=== PATIENT | male | born 1995 | race Two or more races ===

== ENCOUNTER 2017-07-12 02:09 | Inpatient (IN) | payer OTHER ==
[2017-07-12 03:58] LABS: Hematocrit 45 % (42-52); Hemoglobin 15.4 g/dl (14.0-18.0); Mean Corpuscular HGB Conc 34 g/dl (31-36); Mean Corpuscular Hemoglobin 30 pg (27-31); Mean Corpuscular Volume 89 fL (80-94); Mean Platelet Volume 8 um3 (7.4-10.4); Red Blood Count 5.11 10^6/ul (4.0-5.4); Red Cell Distribution Width 13 % (10.5-15); White Blood Count 5.1 10^3/ul (3.5-10.8)
[2017-07-12 04:02] LABS: Urine Bilirubin Negative (Negative); Urine Glucose Negative (Negative); Urine Nitrite Negative (Negative)
[2017-07-12 04:08] LABS: ALT 22 U/L (7-52); AST 16 U/L (13-39); Albumin 4.4 g/dL (3.2-5.2); Alkaline Phosphatase 56 U/L (34-104); Anion Gap 4 mmol/L (2-11); BUN/Creatinine Ratio 17.1 (8-20); Blood Urea Nitrogen 13 mg/dL (6-24); CO2 Carbon Dioxide 31 mmol/L (22-32); Calcium 9.3 mg/dL (8.6-10.3); Chloride 104 mmol/L (101-111); Creatine Kinase 152 U/L (10-223); EGFR African American 166.5 (>60); EGFR Non-African American 129.5 (>60); Glucose 86 mg/dL (70-100); Potassium 3.8 mmol/L (3.5-5.0); Sodium 139 mmol/L (133-145); Total Protein 7.4 g/dL (6.4-8.9)
[2017-07-12 04:09] LABS: Acetaminophen < 15 mcg/mL; Alcohol < 10 mg/dL (<10); Salicylate < 2.50 mg/dL (<30)
[2017-07-12 04:13] LABS: Benzodiazepine Urine Screen None Detected (None Detect)
--- NOTE | 2017-07-12 09:00 | ED ---
Luis E Norwood Thomas, scribed for Sonali Durbin MD on 07/12/17 at 0540 . Psychiatric Complaint - HPI Summary HPI Summary: The pt is a 22 y/o BIB police after he was seen at one of the [facility] [place] where it seemed like he might jump off. He reports feelings of sadness and loneliness recently. He has a Hx of these thoughts. He has never been hospitalized previously. He denies any alcohol or illicit drug use. He denies any CP, FRAZIER, abd pain, dizziness, pain, or any other complaints. 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 He is otherwise healthy. No PSHx. FHx is negative for depression and suicide. His family does not know he is here. He does not want his family to know that he is here. - History Of Current Complaint Chief Complaint: EDMentalHealth Time Seen by Provider: 07/12/17 02:46 Hx Obtained From: Patient, Other: - Police Onset/Duration: Gradual Onset, Lasting Weeks, Still Present Timing: Constant Severity Initially: Moderate Severity Currently: Moderate Character: Depressed Aggravating Factor(s): Nothing Alleviating Factor(s): Nothing Associated Signs And Symptoms: Positive: Negative - Negative for CP, FRAZIER, abd pain, dizziness, pain, or any other complaints Has Suicidal: Reports: Thoughts, With A Plan, Demonstrates Gesture - Risk Factor(s) Completed Suicide Risk Factors: Male PMH/Surg Hx/FS Hx/Imm Hx Previously Healthy: Yes Endocrine/Hematology History: Denies: Hx Diabetes Cardiovascular History: Denies: Hx Hypertension - Surgical History Surgery Procedure, Year, and Place: None Infectious Disease History: No Infectious Disease History: Denies: Traveled Outside the [place] in Last 30 Days - Family History Known Family History: Negative: Other - Negative for depression and suicide - Social History Occupation: Student Lives: Dormitory/Roommates Alcohol Use: Occasionally Substance Use Type: Reports: None Smoking Status (MU): Never Smoked Tobacco Review of Systems Constitutional: Negative Negative: Chest Pain Respiratory: Negative Gastrointestinal: Negative Negative: Other - NEGATIVE: any pain Neurological: Other - NEGATIVE: dizziness Negative: Headache Psychological: Other - Suicidal gesture (found at one of [facility] [place]), sadness, loneliness All Other Systems Reviewed And Are Negative: Yes Physical Exam Triage Information Reviewed: Yes Vital Signs On Initial Exam: Initial Vitals Temp Pulse Resp BP Pulse Ox 97.7 F 74 18 147/65 100 10/01/17 02:14 07/12/17 02:14 07/12/17 02:14 07/12/17 02:14 07/12/17 02:14 Vital Signs Reviewed: Yes Appearance: Positive: Well-Appearing, No Pain Distress, Well-Nourished Skin: Positive: Warm, Skin Color Reflects Adequate Perfusion Head/Face: Positive: Normal Head/Face Inspection Eyes: Positive: Conjunctiva Clear ENT: Positive: Normal ENT inspection Neck: Positive: Supple Respiratory/Lung Sounds: Positive: Clear to Auscultation, Breath Sounds Present , Other - No respiratory distress Cardiovascular: Positive: RRR, Pulses are Symmetrical in both Upper and Lower Extremities, Other - Brisk cap refill. Negative: Murmur Abdomen Description: Positive: Nontender, Soft Bowel Sounds: Positive: Present Musculoskeletal: Positive: Strength/ROM Intact Neurological: Positive: Sensory/Motor Intact, Alert, Oriented to Person Place, Time, Facial Symmetry, Speech Normal Psychiatric: Positive: Affect/Mood Appropriate - [place] Coma Scale Coma Scale Total: 15 Diagnostics - Vital Signs Vital Signs Temp Pulse Resp BP Pulse Ox 07/12/17 03:58 98.7 F 65 20 146/85 99 07/12/17 02:14 97.7 F 74 18 147/65 100 - Laboratory Lab Results: Lab Results 07/12/17 07/12/17 07/12/17 Range/Units 02:20 02:20 02:25 WBC 5.1 (3.5-10.8) 10^3/ul RBC 5.11 (4.0-5.4) 10^6/ul Hgb 15.4 (14.0-18.0) g/dl Hct 45 (42-52) % MCV 89 (80-94) fL MCH 30 (27-31) pg MCHC 34 (31-36) g/dl RDW 13 (10.5-15) % Plt Count 206 (150-450) 10^3/ul MPV 8 (7.4-10.4) um3 Neut % (Auto) 43.0 (38-83) % Lymph % (Auto) 41.8 (25-47) % [place] % (Auto) 10.8 H (1-9) % Eos % (Auto) 3.6 (0-6) % Baso % (Auto) 0.8 (0-2) % Absolute Neuts (auto) 2.2 (1.5-7.7) 10^3/ul Absolute Lymphs (auto) 2.1 (1.0-4.8) 10^3/ul Absolute Monos (auto) 0.5 (0-0.8) 10^3/ul Absolute Eos (auto) 0.2 (0-0.6) 10^3/ul Absolute Basos (auto) 0 (0-0.2) 10^3/ul Absolute Nucleated RBC 0 10^3/ul Nucleated RBC % 0 Sodium 139 (133-145) mmol/L Potassium 3.8 (3.5-5.0) mmol/L Chloride 104 (101-111) mmol/L Carbon Dioxide 31 (22-32) mmol/L Anion Gap 4 (2-11) mmol/L BUN 13 (6-24) mg/dL Creatinine 0.76 (0.67-1.17) mg/dL Est GFR ( Amer) 166.5 (>60) Est GFR (Non-Af Amer) 129.5 (>60) BUN/Creatinine Ratio 17.1 (8-20) Glucose 86 (70-100) mg/dL Calcium 9.3 (8.6-10.3) mg/dL Total Bilirubin 0.40 (0.2-1.0) mg/dL AST 16 (13-39) U/L ALT 22 (7-52) U/L Alkaline Phosphatase 56 (34-104) U/L Total Creatine Kinase 152 (10-223) U/L Total Protein 7.4 (6.4-8.9) g/dL Albumin 4.4 (3.2-5.2) g/dL Globulin 3.0 (2-4) g/dL Albumin/Globulin Ratio 1.5 (1-3) TSH 2.80 (0.34-5.60) mcIU/mL Urine Color Urine Appearance Urine pH (5-9) Ur Specific [place] (1.010-1.030) Urine Protein (Negative) Urine Ketones (Negative) Urine Blood (Negative) Urine Nitrate (Negative) Urine Bilirubin (Negative) Urine Urobilinogen (Negative) Ur Leukocyte Esterase (Negative) Urine Glucose (Negative) Salicylates < 2.50 (<30) mg/dL Urine Opiates Screen None detected (None Detect) Acetaminophen < 15 mcg/mL Ur Barbiturates Screen None detected (None Detect) Ur Phencyclidine Scrn None detected (None Detect) Ur Amphetamines Screen None detected (None Detect) U Benzodiazepines Scrn None detected (None Detect) Urine Cocaine Screen None detected (None Detect) U Cannabinoids Screen None detected (None Detect) Serum Alcohol < 10 (<10) mg/dL 07/12/17 Range/Units 02:25 WBC (3.5-10.8) 10^3/ul RBC (4.0-5.4) 10^6/ul Hgb (14.0-18.0) g/dl Hct (42-52) % MCV (80-94) fL MCH (27-31) pg MCHC (31-36) g/dl RDW (10.5-15) % Plt Count (150-450) 10^3/ul MPV (7.4-10.4) um3 Neut % (Auto) (38-83) % Lymph % (Auto) (25-47) % [place] % (Auto) (1-9) % Eos % (Auto) (0-6) % Baso % (Auto) (0-2) % Absolute Neuts (auto) (1.5-7.7) 10^3/ul Absolute Lymphs (auto) (1.0-4.8) 10^3/ul Absolute Monos (auto) (0-0.8) 10^3/ul Absolute Eos (auto) (0-0.6) 10^3/ul Absolute Basos (auto) (0-0.2) 10^3/ul Absolute Nucleated RBC 10^3/ul Nucleated RBC % Sodium (133-145) mmol/L Potassium (3.5-5.0) mmol/L Chloride (101-111) mmol/L Carbon Dioxide (22-32) mmol/L Anion Gap (2-11) mmol/L BUN (6-24) mg/dL Creatinine (0.67-1.17) mg/dL Est GFR ( Amer) (>60) Est GFR (Non-Af Amer) (>60) BUN/Creatinine Ratio (8-20) Glucose (70-100) mg/dL Calcium (8.6-10.3) mg/dL Total Bilirubin (0.2-1.0) mg/dL AST (13-39) U/L ALT (7-52) U/L Alkaline Phosphatase (34-104) U/L Total Creatine Kinase (10-223) U/L Total Protein (6.4-8.9) g/dL Albumin (3.2-5.2) g/dL Globulin (2-4) g/dL Albumin/Globulin Ratio (1-3) TSH (0.34-5.60) mcIU/mL Urine Color Yellow Urine Appearance Cloudy Urine pH 6.0 (5-9) Ur Specific [place] 1.021 (1.010-1.030) Urine Protein Negative (Negative) Urine Ketones Negative (Negative) Urine Blood Negative (Negative) Urine Nitrate Negative (Negative) Urine Bilirubin Negative (Negative) Urine Urobilinogen Negative (Negative) Ur Leukocyte Esterase Negative (Negative) Urine Glucose Negative (Negative) Salicylates (<30) mg/dL Urine Opiates Screen (None Detect) Acetaminophen mcg/mL Ur Barbiturates Screen (None Detect) Ur Phencyclidine Scrn (None Detect) Ur Amphetamines Screen (None Detect) U Benzodiazepines Scrn (None Detect) Urine Cocaine Screen (None Detect) U Cannabinoids Screen (None Detect) Serum Alcohol (<10) mg/dL Result Diagrams: 07/12/17 02:20 07/12/17 02:20 Lab Statement: Any lab studies that have been ordered have been reviewed, and results considered in the medical decision making process. Course/Dx - Course Course Of Treatment: Cleared for MHE at 05:38. Patient's medication reviewed this visit. Blood pressure noted. Assessment/Plan: The pt is a 22 y/o BIB police after he was seen at one of the [facility] [place] where it seemed like he might jump off. He reports feelings of sadness and loneliness recently. Bloodwork was obtained. Bloodwork and UA obtained. Urine toxicology is negative. The patient is signed out to the next ED attending pending MHE and awaiting disposition. Dr. Durbin feels that pt should be admitted at the time of her evaluation. - Differential Dx/Clinical Impression Differential Diagnosis/HQI/PQRI: Positive: Bipolar Disorder, Depression, Suicidal Ideation, Suicidal Gesture Provider Diagnosis: Suicidal behavior Discharge - Discharge Plan Condition: Stable Disposition: OTHER Discharge Disposition Comment: Signed out to next ED attending pending MHE and awaiting disposition. The documentation as recorded by the rafaibLuis E silveira Thomas accurately reflects the service I personally performed and the decisions made by , Sonali Durbin MD.
--- NOTE | 2017-07-12 16:12 | CONSULT ---
Consult Consult: Mr. Cosme presented on a previous shift [place] He was medically cleared and had a MHE. They felt that is was unsafe to send him home and I agree. HE is admitted in stable condition with a diagnosis of depression with suicidal ideation.
[2017-07-12] MEDS ORDERED: Al Hydrox/Mg Hydrox/Simet LIQ* 30 ML UDC PO PRN (18:22)
[2017-07-12] MEDS ORDERED: Acetaminophen TAB* 325 MG PO PRN (18:22)
[2017-07-13] MEDS: Vitamin THERAPEUTIC TAB PO SCH (09:43)
[2017-07-13] MEDS: Citalopram TAB* 10 MG PO SCH (12:08)
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
[2017-07-14] MEDS: Vitamin THERAPEUTIC TAB PO SCH (08:56)
[2017-07-14] MEDS: Citalopram TAB* 10 MG PO SCH (08:56)
--- NOTE | 2017-07-14 14:56 | PN ---
Subjective - Subjective Service Type: 51353 Hosp care 25 min moderate complexity Subjective: Patient presents as euthymic and interactive with select peers. He reports mild headache this morning, denies other side effects. His parents arrived from [place] today and are visiting with patient. Mikel appeared anxious when speaking with parents and typewriter operator automatic. Parents noted to be supportive and asking patient how to help. Discussed suggestions of treatment during and post admission, including SSRI and CBT. Objective - Appearance Appearance: Well Developed/Nourished Dysmorphic Features: Yes Hygiene: Normal Grooming: Well Kept - Behavior Psychomotor Activities: Normal Exhibits Abnormal Movement: No - Attitude and Relatedness Attitude and Relatedness: Cooperative Eye Contact: Fair - Speech Quality: Unpressured Latencies: Normal Quantity: Terse - Mood Patient's Decription of Mood: "Okay" - Affect Observed Affect: Tense Affect Consistent with: Dysphoria - Thought Process Patient's Thought Process: Coherent, Goal Directed Thought Content: No Passive Wish, No Suicidal Planning, No Homicidal Ideation, No Paranoid Ideation - Sensorium Experiencing Hallucinations: No, Sensorium is Clear Type of Hallucinations: Visual: No, Auditory: No, Command: No - Level of Consciousness Level of Consciousness: Alert Orientation: Yes Intact, Yes Orientated to Time, Yes Orientated to Place, Yes Orientated to Person - Impulse Control Impulse Control: Intact - Insight and Judgement Insight and Judgement: Good - Group Participation Particating in Group Activities: Yes - Medication Management Medication Management Adherence: Yes Assessment - Assessment Merits Inpatient Hospitalization: For Immediate Safety, For Stabilization, Consolidate Improvements, For Discharge Planning, Pending Safe DC Plan Inpatient DSM-IV Dx: Major depressive d/o, moderate, recurrent Clinical Impression: 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 He was brought by [facility] when near a bridge with suicidal ideation. He is agreeable to trial of SSRI. Will return to outpatient services at [facility] upon discharge. Plan - Plan Treatment Plan: Name: GERRY GABRIEL Birthdate: 1995 [id number] Continue acute intensive psychiatric treatment. Decrease observation to q30min and allow staff pass. Family meeting scheduled for tomorrow at 1pm. Continued Medication Management: Start Medication Medications: Current Medications Acetaminophen (Tylenol Tab*) 650 mg PO Q4H PRN PRN Reason: PAIN or TEMP > 101 F Al Hydrox/Mg Hydrox/Simethicone (Maalox Plus*) 30 ml PO Q4H PRN PRN Reason: INDIGESTION Citalopram Hydrobromide (Celexa Tab*) 10 mg PO DAILY [facility] Last Admin: 07/14/17 08:56 Dose: 10 mg Diphenhydramine HCl (Benadryl Po*) 50 mg PO BEDTIME PRN PRN Reason: ANXIETY/INSOMNIA Multivitamins (Theragran Tab*) 1 tab PO DAILY [facility] Last Admin: 07/14/17 08:56 Dose: 1 tab - Discharge Plan Discharge Plan: Outpatient Follow Up Outpatient Program: Counseling/Psych Services at [employer]
[2017-07-15] MEDS: Citalopram TAB* 10 MG PO SCH (08:34)
[2017-07-15] MEDS: Vitamin THERAPEUTIC TAB PO SCH (08:35)
[2017-07-15 08:44] VITALS: BP 119/70
--- NOTE | 2017-07-15 15:33 | DS ---
CC: [facility]; primary care* DATE OF ADMISSION: 07/12/2017. DATE OF DISCHARGE: 07/15/2017. SUPERVISING PSYCHIATRIST: Dr. Tomy Patterson* (dictated by DANISH Hebert) . DISCHARGE DIAGNOSES: AXIS I: Major depressive disorder, moderate, recurrent with anxious distress. AXIS II: Deferred. AXIS III: No active medical problem. AXIS IV: Severe, stressors related to academic course load, sexual identity and social isolation. AXIS V: 55. CONDITION AT THE TIME OF DISCHARGE: Improved. The patient presents as euthymic with bright affect. He is interactive with staff and peers. He is able to identify coping skills for depressed mood and anxious distress. He denies suicidal ideation. He is able to identify community and social resources to utilize in times of stress. His parents are here and supportive. They are visiting through Thursday. Family meeting took place with report writer, manager social responsibility Ann Seay, patient and his parents, Dr. Toño Cosme and Marybel Cosme. We discussed patient's presentation and course of treatment and discharge plan. Parents expressed concern and questions were answered. The patient discouraged to refrain from binge drinking alcohol due to impact on mood and risk for impulsive behaviors. MENTAL STATUS EXAM: The patient is a moderately-framed, male who appears stated age. He is pleasant and cooperative. ADL's are performed and he is well - groomed. He answers questions fully. He is alert and oriented times three. His eye contact is good. Concentration is good. His memory is 3/3. His mood is "optimistic and nervous." Affect is full range. His speech is soft, regular rhythm and articulate. Thought process is logical, goal directed and coherent. Thought content is negative for SI, SIB urges, passive wish. His insight is very good. His judgment is good. His fund of knowledge is excellent. DISCHARGE INSTRUCTIONS: Instructions were given to him by nursing staff. A. Medications: Lexapro 10 mg p.o. daily. Two week supply, plus one refill is sent to [facility]. Discussed boxed warning and risks versus benefits. He will continue management through [facility]. B. Diet: Regular. C. Activity: Ambulation as tolerated. Tobacco cessation not applicable. There are no pending labs or diagnostic studies at the time of discharge. D. Follow-up care: The patient will follow-up with post-hospitalization appointment at [facility] today at 3:00 p.m. He will continue seeing his therapist, Troy Ortiz. The next appointment with him is on July 17. He will follow-up for medical management at [facility]. HOSPITAL COURSE: A. Reason for admission: The patient was found [place] a [place] near [place] and brought to the emergency department by [place] Police due to suicidal ideation. Upon arrival to the emergency department, he was agreeable to admission to Behavioral Services Unit. B. Psychiatric treatment rendered: The patient was admitted to the Adult Behavioral Services Unit on status. The code status was full. Safety checks every 15 minutes. The patient was encouraged to participate in intensive milieu. Individual sessions with staff and psychoeducational groups. He was given an MMPI for further diagnostic clarification. Please see dictated noted by psychologist Ag Valderrama, PhD. The patient was agreeable to a trial of antidepressant therapy. Lexapro was chosen due to low side effect profile and efficacy for depressed mood with anxious distress. This medication is not on formulary at the hospital. Auto substitution was Citalopram. The patient tolerated it well. He reported a minor headache and denied other side effects. The patient was decreased to q.30 minute observation and allowed computer privileges and staff pass. He had friends visit and this was helpful to him. Export Documents Clerk and manager social responsibility collaborated with the patient's parents who flew here to support the patient. He was noted to have positive interactions with family members during visitation. Family meeting occurred today prior to discharge. Please see manager social responsibility note. The patient denies suicidal ideation. He was safe on all checks. He reported readiness for discharge. He had good insight in that he was mildly nervous about returning to academic course load. Safety planning discussed and outpatient follow-up discussed. The patient is discharged to the care of his parents by nursing staff. DANISH HEBERT [id number]/CPS #: [id number] JAY JAY
== END 2017-07-15 14:00 | disposition home or self-care (01) | DRG 751 ==
LOC: ED 02:09 → BSU 17:46
PROVIDERS: ADMIT Psychiatry & Neurology Psychiatry; ATTEND Psychiatry & Neurology Psychiatry
DX: F33.1 Major depressive disorder, recurrent, moderate (principal); R45.851 Suicidal ideations; F41.8 Other specified anxiety disorders; F12.90 Cannabis use, unspecified, uncomplicated; R40.2412 Glasgow coma scale score 13-15, at arrival to emergency department; Z81.8 Family history of other mental and behavioral disorders; Z72.89 Other problems related to lifestyle
CPT/HCPCS: 36415; 80053; 80307; 80320; 80329; 81003; 82550; 83605; 84443; 85025; 86703; 86803; 87491; 87591; 99222; 99232; 99238; A9270-GY; G0480

== ENCOUNTER 2017-07-25 17:08 | Inpatient (IN) | payer OTHER ==
[2017-07-25 18:16] LABS: Urine Bilirubin Negative (Negative); Urine Glucose Negative (Negative); Urine Nitrite Negative (Negative)
[2017-07-25 18:18] LABS: Hematocrit 47 % (42-52); Mean Corpuscular HGB Conc 34 g/dl (31-36); Mean Corpuscular Hemoglobin 30 pg (27-31); Mean Corpuscular Volume 88 fL (80-94); Mean Platelet Volume 8 um3 (7.4-10.4); Red Blood Count 5.34 10^6/ul (4.0-5.4); Red Cell Distribution Width 13 % (10.5-15); White Blood Count 6.6 10^3/ul (3.5-10.8)
[2017-07-25 18:27] LABS: Benzodiazepine Urine Screen None Detected (None Detect)
[2017-07-25 18:33] LABS: ALT 14 U/L (7-52); AST 14 U/L (13-39); Albumin 4.8 g/dL (3.2-5.2); Alkaline Phosphatase 51 U/L (34-104); Anion Gap 6 mmol/L (2-11); BUN/Creatinine Ratio 12.6 (8-20); Blood Urea Nitrogen 11 mg/dL (6-24); CO2 Carbon Dioxide 30 mmol/L (22-32); Calcium 9.8 mg/dL (8.6-10.3); Chloride 101 mmol/L (101-111); EGFR African American 142.5 (>60); EGFR Non-African American 110.8 (>60); Globulin 3.4 g/dL (2-4); Glucose 92 mg/dL (70-100); Potassium 3.8 mmol/L (3.5-5.0); Sodium 137 mmol/L (133-145); Total Protein 8.2 g/dL (6.4-8.9)
[2017-07-25 18:48] LABS: Acetaminophen < 15 mcg/mL; Alcohol < 10 mg/dL (<10); Salicylate < 2.50 mg/dL (<30)
[2017-07-25 19:04] LABS: TSH (Thyroid Stimulating Horm) 0.36 mcIU/mL (0.34-5.60)
--- NOTE | 2017-07-25 23:34 | ED ---
Psychiatric Complaint - HPI Summary HPI Summary: Pt arrives via EMS, pt's roommates found pt attempting suicide via strangulation. He states he feels strange now because he feels fine and is calling the event an "episode." He states he was starting to become angry and yelled at his roommate, threatening to harm him if he called he police. He was seen in the ED for similar symptoms of depression and anxiety and states after starting his new antidepressant he was beginning to feel better until today when he developed suicidal thoughts. He feels it is an overwhelming feeling of inadequacy and feeling those around him do not care about him. The feelings come in waves. He denies drug use or ETOH use. Denies SI/HI currently. Denies self harm. - History Of Current Complaint Chief Complaint: EDMentalHealth Time Seen by Provider: 07/25/17 17:32 Hx Obtained From: Patient Onset/Duration: Sudden Onset Timing: Constant Severity Initially: Severe Severity Currently: Mild Character: Depressed, Fearful, Anxious, Angry Aggravating Factor(s): Recent Stress Alleviating Factor(s): Nothing Associated Signs And Symptoms: Positive: Negative Related History: Positive For: Prior Psychiatric Issues Has Suicidal: Reports: Thoughts Has Homicidal: Reports: Thoughts - Risk Factor(s) Completed Suicide Risk Factors: Male - Allergies/Home Medications Allergies/Adverse Reactions: Allergies Allergy/AdvReac Type Severity Reaction Status Date / Time No Known Allergies Allergy Verified 07/12/17 22:21 PMH/Surg Hx/FS Hx/Imm Hx Previously Healthy: Yes Endocrine/Hematology History: Denies: Hx Diabetes Cardiovascular History: Denies: Hx Hypertension Respiratory History: Reports: Hx Asthma - uses albuterol inh occassionally Sensory History: Reports: Hx Contacts or Glasses - glasses for reading Denies: Hx Hearing Aid Opthamlomology History: Reports: Hx Contacts or Glasses - glasses for reading Psychiatric History: Denies: Hx of Violent Episodes Against Others - Surgical History Surgery Procedure, Year, and Place: None - Immunization History Hx Pertussis Vaccination: No Immunizations Up to Date: Unable to Obtain/Confirm Infectious Disease History: No Infectious Disease History: Denies: Traveled Outside the [place] in Last 30 Days - Family History Known Family History: Negative: Other - Negative for depression and suicide - Social History Occupation: Unemployed Lives: Dormitory/Roommates Alcohol Use: Occasionally Alcohol Amount: pt reports drinking 1-2 times a week/1-2 drinks Hx Substance Use: Yes Substance Use Type: Reports: Marijuana Hx Tobacco Use: No Smoking Status (MU): Never Smoked Tobacco Amount Used/How Often: does not use tobacco Length of Time of Smoking/Using Tobacco: pt never used tobacco Have You Smoked in the Last Year: No Review of Systems Constitutional: Negative Negative: Fever, Chills, Fatigue Eyes: Negative Cardiovascular: Negative Respiratory: Negative Genitourinary: Negative Positive: no symptoms reported, see HPI Musculoskeletal: Negative Neurological: Negative Positive: Anxious, Depressed All Other Systems Reviewed And Are Negative: Yes Physical Exam Triage Information Reviewed: Yes Vital Signs On Initial Exam: Initial Vitals Temp Pulse Resp BP Pulse Ox 97.6 F 73 16 119/79 97 07/25/17 17:08 07/25/17 17:08 07/25/17 17:08 07/25/17 17:08 07/25/17 17:08 Vital Signs Reviewed: Yes Appearance: Positive: Well-Appearing, Well-Nourished Skin: Positive: Warm, Skin Color Reflects Adequate Perfusion Head/Face: Positive: Normal Head/Face Inspection Eyes: Positive: EOMI, CAMILLA Neck: Positive: Supple, No Lymphadenopathy Respiratory/Lung Sounds: Positive: Clear to Auscultation, Breath Sounds Present Cardiovascular: Positive: Normal, RRR Musculoskeletal: Positive: Strength/ROM Intact Psychiatric: Positive: Anxious, Depressed AVPU Assessment: Alert - [place] Coma Scale Coma Scale Total: 15 Diagnostics - Vital Signs Vital Signs Temp Pulse Resp BP Pulse Ox 07/25/17 17:08 97.6 F 73 16 119/79 97 - Laboratory Lab Results: Lab Results 07/25/17 07/25/17 07/25/17 Range/Units 17:37 17:37 18:04 WBC (3.5-10.8) 10^3/ul RBC (4.0-5.4) 10^6/ul Hgb (14.0-18.0) g/dl Hct (42-52) % MCV (80-94) fL MCH (27-31) pg MCHC (31-36) g/dl RDW (10.5-15) % Plt Count (150-450) 10^3/ul MPV (7.4-10.4) um3 Neut % (Auto) (38-83) % Lymph % (Auto) (25-47) % Spink % (Auto) (1-9) % Eos % (Auto) (0-6) % Baso % (Auto) (0-2) % Absolute Neuts (auto) (1.5-7.7) 10^3/ul Absolute Lymphs (auto) (1.0-4.8) 10^3/ul Absolute Monos (auto) (0-0.8) 10^3/ul Absolute Eos (auto) (0-0.6) 10^3/ul Absolute Basos (auto) (0-0.2) 10^3/ul Absolute Nucleated RBC 10^3/ul Nucleated RBC % Sodium 137 (133-145) mmol/L Potassium 3.8 (3.5-5.0) mmol/L Chloride 101 (101-111) mmol/L Carbon Dioxide 30 (22-32) mmol/L Anion Gap 6 (2-11) mmol/L BUN 11 (6-24) mg/dL Creatinine 0.87 (0.67-1.17) mg/dL Est GFR ( Amer) 142.5 (>60) Est GFR (Non-Af Amer) 110.8 (>60) BUN/Creatinine Ratio 12.6 (8-20) Glucose 92 (70-100) mg/dL Calcium 9.8 (8.6-10.3) mg/dL Total Bilirubin 0.40 (0.2-1.0) mg/dL AST 14 (13-39) U/L ALT 14 (7-52) U/L Alkaline Phosphatase 51 (34-104) U/L Total Protein 8.2 (6.4-8.9) g/dL Albumin 4.8 (3.2-5.2) g/dL Globulin 3.4 (2-4) g/dL Albumin/Globulin Ratio 1.4 (1-3) TSH 0.36 (0.34-5.60) mcIU/mL Urine Color Yellow Urine Appearance Clear Urine pH 6.0 (5-9) Ur Specific Williams 1.023 (1.010-1.030) Urine Protein Negative (Negative) Urine Ketones Negative (Negative) Urine Blood Negative (Negative) Urine Nitrate Negative (Negative) Urine Bilirubin Negative (Negative) Urine Urobilinogen Negative (Negative) Ur Leukocyte Esterase Negative (Negative) Urine Glucose Negative (Negative) Salicylates < 2.50 (<30) mg/dL Urine Opiates Screen None detected (None Detect) Acetaminophen < 15 mcg/mL Ur Barbiturates Screen None detected (None Detect) Ur Phencyclidine Scrn None detected (None Detect) Ur Amphetamines Screen None detected (None Detect) U Benzodiazepines Scrn None detected (None Detect) Urine Cocaine Screen None detected (None Detect) U Cannabinoids Screen None detected (None Detect) Serum Alcohol < 10 (<10) mg/dL 07/25/17 Range/Units 18:04 WBC 6.6 (3.5-10.8) 10^3/ul RBC 5.34 (4.0-5.4) 10^6/ul Hgb 16.0 (14.0-18.0) g/dl Hct 47 (42-52) % MCV 88 (80-94) fL MCH 30 (27-31) pg MCHC 34 (31-36) g/dl RDW 13 (10.5-15) % Plt Count 226 (150-450) 10^3/ul MPV 8 (7.4-10.4) um3 Neut % (Auto) 67.9 (38-83) % Lymph % (Auto) 24.5 L (25-47) % Spink % (Auto) 5.7 (1-9) % Eos % (Auto) 1.4 (0-6) % Baso % (Auto) 0.5 (0-2) % Absolute Neuts (auto) 4.5 (1.5-7.7) 10^3/ul Absolute Lymphs (auto) 1.6 (1.0-4.8) 10^3/ul Absolute Monos (auto) 0.4 (0-0.8) 10^3/ul Absolute Eos (auto) 0.1 (0-0.6) 10^3/ul Absolute Basos (auto) 0 (0-0.2) 10^3/ul Absolute Nucleated RBC 0 10^3/ul Nucleated RBC % 0 Sodium (133-145) mmol/L Potassium (3.5-5.0) mmol/L Chloride (101-111) mmol/L Carbon Dioxide (22-32) mmol/L Anion Gap (2-11) mmol/L BUN (6-24) mg/dL Creatinine (0.67-1.17) mg/dL Est GFR ( Amer) (>60) Est GFR (Non-Af Amer) (>60) BUN/Creatinine Ratio (8-20) Glucose (70-100) mg/dL Calcium (8.6-10.3) mg/dL Total Bilirubin (0.2-1.0) mg/dL AST (13-39) U/L ALT (7-52) U/L Alkaline Phosphatase (34-104) U/L Total Protein (6.4-8.9) g/dL Albumin (3.2-5.2) g/dL Globulin (2-4) g/dL Albumin/Globulin Ratio (1-3) TSH (0.34-5.60) mcIU/mL Urine Color Urine Appearance Urine pH (5-9) Ur Specific Williams (1.010-1.030) Urine Protein (Negative) Urine Ketones (Negative) Urine Blood (Negative) Urine Nitrate (Negative) Urine Bilirubin (Negative) Urine Urobilinogen (Negative) Ur Leukocyte Esterase (Negative) Urine Glucose (Negative) Salicylates (<30) mg/dL Urine Opiates Screen (None Detect) Acetaminophen mcg/mL Ur Barbiturates Screen (None Detect) Ur Phencyclidine Scrn (None Detect) Ur Amphetamines Screen (None Detect) U Benzodiazepines Scrn (None Detect) Urine Cocaine Screen (None Detect) U Cannabinoids Screen (None Detect) Serum Alcohol (<10) mg/dL Result Diagrams: 07/25/17 18:04 07/25/17 18:04 Lab Statement: Any lab studies that have been ordered have been reviewed, and results considered in the medical decision making process. Course/Dx - Course Course Of Treatment: Patient is evaluated for MHU. He was seen 2 weeks ago for same. He is sent to [facility]. SI have subsided. He states he is willing to be admitted at this time. Denies physical pain. - Differential Dx/Clinical Impression Differential Diagnosis/HQI/PQRI: Positive: Suicide Attempt, Suicidal Ideation, Suicidal Gesture Provider Diagnosis: Suicidal ideation Discharge - Discharge Plan Condition: Stable Disposition: OTHER Discharge Disposition Comment: Patient is sent to [facility] awaiting possible admission and evaluation
[2017-07-26] MEDS ORDERED: hydrOXYzine HCL TAB* 25 MG PO PRN (20:22)
[2017-07-27] MEDS: Citalopram TAB* 20 MG PO SCH (09:43)
[2017-07-27] MEDS ORDERED: Acetaminophen TAB* 325 MG PO PRN (15:42)
[2017-07-27] MEDS ORDERED: Al Hydrox/Mg Hydrox/Simet LIQ* 30 ML UDC PO PRN (15:42)
[2017-07-28] MEDS: Citalopram TAB* 20 MG PO SCH (08:57)
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
[2017-07-29] MEDS: Citalopram TAB* 20 MG PO SCH (08:23)
[2017-07-29] MEDS ORDERED: ARIPiprazole TAB* 5 MG PO SCH (09:00)
--- NOTE | 2017-07-29 11:16 | PN ---
Subjective - Subjective Service Type: 00894 Hosp care 25 min moderate complexity Subjective: Patient presents as hypertalkative, rapid speech. He states he spoke with his father on the phone last evening and this was helpful. His father encouraged him to take some time off from school but Mikel wants to finish the semester. He identifies that he enjoys "intensity" of his personality. He states he is concerned about the relationships with his roommates but also understands they may need some time/space from him. Building Guard Deputy Sheriff spoke with his father, Dr Toño Cosme, via his cell phone [phone]. He spoke with Mikel's roommates who are currently afraid of Mikel returning to the apartment due to his behavior over the past week. He states they noted him to be paranoid, as well. Dr Cosme encouraged Mikel to take the rest of the semester off and would support him financially. He also realizes that Mikel would likely be bored and this would not benefit his mental health, either. He requests that he is included in discharge planning. Objective - Appearance Appearance: Well Developed/Nourished Dysmorphic Features: No Hygiene: Normal Grooming: Well Kept - Behavior Psychomotor Activities: Normal Exhibits Abnormal Movement: No - Attitude and Relatedness Attitude and Relatedness: Cooperative Eye Contact: Good - Speech Quality: Pressured Latencies: Normal Quantity: Copious - Mood Patient's Decription of Mood: "Upset" - Affect Observed Affect: Expansive Affect Consistent with: Euphoria - Thought Process Patient's Thought Process: Circumstantial Thought Content: No Passive Wish, No Suicidal Planning, No Homicidal Ideation, No Paranoid Ideation - Sensorium Experiencing Hallucinations: No, Sensorium is Clear Type of Hallucinations: Visual: No, Auditory: No, Command: No - Level of Consciousness Level of Consciousness: Alert Orientation: Yes Intact, Yes Orientated to Time, Yes Orientated to Place, Yes Orientated to Person - Impulse Control Impulse Control: Tenuous - Insight and Judgement Insight and Judgement: Poor - Group Participation Particating in Group Activities: Yes - Medication Management Medication Management Adherence: Yes Assessment - Assessment Merits Inpatient Hospitalization: For Immediate Safety, For Stabilization, To Initiate Treatment, For Discharge Planning Plan - Plan Treatment Plan: Name: GERRY COSME Birthdate: 1995 [id number] Continue acute intensive psychiatric treatment. DC celexa (lexapro) and lorazepam, start depakote at bedtime. Discharge planning to include family and [facility] providers. Continued Medication Management: Different Medication Medications: Current Medications Acetaminophen (Tylenol Tab*) 650 mg PO Q4H PRN PRN Reason: for pain; or Temp >101 F Al Hydrox/Mg Hydrox/Simethicone (Maalox Plus*) 30 ml PO Q4H PRN PRN Reason: INDIGESTION Hydroxyzine HCl (Atarax Tab*) 25 mg PO Q6H PRN PRN Reason: ANXIETY Last Admin: 07/27/17 00:13 Dose: 25 mg - Discharge Plan Discharge Plan: Outpatient Follow Up Outpatient Program: Counseling/Psych Services at [facility]
[2017-07-29] MEDS: Divalproex ER TAB(*) 500 MG PO SCH (20:34)
--- NOTE | 2017-07-30 14:46 | PN ---
Subjective - Subjective Service Type: 01256 Hosp care 25 min moderate complexity Subjective: Patient presents as euthymic with congruent affect, brightens at times. He denies sedation from depakote and has been present in milieu, attending groups and interactive with peers. He inquires about diagnosis and publications writer discussed cyclothymia. Discussed risks/benefits of depakote and pt reports his greatest concern is possibility of weight gain. He states intent to speak with still operator brandy at [employer] and is receptive to nutrition consult while in hospital. Discussed discharge plan of likely continuing stabilization through the weekend. Patient agrees and states he would like to give his roommates time to feel more comfortable before his return. He states he had many friends visit last evening and have offered him places to stay. Parents phoned by publications writer and given update. Objective - Appearance Appearance: Well Developed/Nourished Dysmorphic Features: No Hygiene: Normal Grooming: Well Kept - Behavior Psychomotor Activities: Normal Exhibits Abnormal Movement: No - Attitude and Relatedness Attitude and Relatedness: Cooperative Eye Contact: Good - Speech Quality: Unpressured Latencies: Normal Quantity: Appropriate - Mood Patient's Decription of Mood: "Okay" - Affect Observed Affect: Good Affect Consistent with: Euthymia - Thought Process Patient's Thought Process: Coherent, Goal Directed Thought Content: No Passive Wish, No Suicidal Planning, No Homicidal Ideation, No Paranoid Ideation - Sensorium Experiencing Hallucinations: No, Sensorium is Clear Type of Hallucinations: Visual: No, Auditory: No, Command: No - Level of Consciousness Level of Consciousness: Alert Orientation: Yes Intact, Yes Orientated to Time, Yes Orientated to Place, Yes Orientated to Person - Impulse Control Impulse Control: Tenuous - Insight and Judgement Insight and Judgement: Good - Group Participation Particating in Group Activities: Yes - Medication Management Medication Management Adherence: Yes Assessment - Assessment Merits Inpatient Hospitalization: For Immediate Safety, For Stabilization, Consolidate Improvements, For Discharge Planning, Pending Safe DC Plan Inpatient DSM-IV Dx: bipolar II d/o, most recent episode manic Clinical Impression: 22 yo male, [employer]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 His roommates phoned police due to paranoid behavior and threats to harm them, the police and himself. Patient merits hospitalization for immediate safety and stabilization. Plan - Plan Treatment Plan: Name: GERRY NERY Birthdate: 1995 [id number] Continue acute intensive psychiatric treatment. Continue titration of depakote and obtain valproic acid level on morning of 08/02/17. Discharge planning to include family and [facility] providers. Continued Medication Management: Different Medication Medications: Current Medications Acetaminophen (Tylenol Tab*) 650 mg PO Q4H PRN PRN Reason: for pain; or Temp >101 F Al Hydrox/Mg Hydrox/Simethicone (Maalox Plus*) 30 ml PO Q4H PRN PRN Reason: INDIGESTION Divalproex Sodium (Depakote Er Tab(*)) 1,200 mg PO BEDTIME DEVIN Last Admin: 07/29/17 20:34 Dose: 1,000 mg Hydroxyzine HCl (Atarax Tab*) 25 mg PO Q6H PRN PRN Reason: ANXIETY Last Admin: 07/27/17 00:13 Dose: 25 mg - Discharge Plan Discharge Plan: Outpatient Follow Up Outpatient Program: Counseling/Psych Services at [facility]
--- NOTE | 2017-07-30 16:40 | PN ---
MHU: Group Therapy Note - Service Type Service Type: [id number] Group Psychotherapy - Medication Education Group: Patient was attentive and participatory in group, and remained in good behavioral control. Patient expressed positive insights regarding relevant treatment interventions. Patient stated understanding of material discussed and had appropriate questions.
[2017-07-30] MEDS: Divalproex ER TAB(*) 500 MG PO SCH (20:33)
[2017-07-31] MEDS ORDERED: Divalproex DR TAB(*) 250 MG PO ONE (10:09)
--- NOTE | 2017-07-31 10:36 | PN ---
Subjective - Subjective Service Type: 69742 Hosp care 15 min low complexity Subjective: Patient observed to stand over his roommate while sleeping. When asked about this, he told staff "I was lonely." Endorsed hallucinations and when asked about this, he relates that he was having vivid and bizarre dreams. Patient has appropriate questions about diagnoses and medications. Objective - Appearance Appearance: Well Developed/Nourished Dysmorphic Features: No Hygiene: Normal Grooming: Well Kept - Behavior Psychomotor Activities: Normal Exhibits Abnormal Movement: No - Attitude and Relatedness Attitude and Relatedness: Cooperative Eye Contact: Good - Speech Quality: Unpressured Latencies: Normal Quantity: Appropriate - Mood Patient's Decription of Mood: "Anxious" - Affect Observed Affect: Good Affect Consistent with: Euthymia - Thought Process Patient's Thought Process: Coherent, Goal Directed Thought Content: No Passive Wish, No Suicidal Planning, No Homicidal Ideation, No Paranoid Ideation - Sensorium Experiencing Hallucinations: Yes Type of Hallucinations: Visual: Yes, Auditory: Yes, Command: No - Level of Consciousness Level of Consciousness: Alert Orientation: Yes Intact, Yes Orientated to Time, Yes Orientated to Place, Yes Orientated to Person - Impulse Control Impulse Control: Poor - Insight and Judgement Insight and Judgement: Poor - Group Participation Particating in Group Activities: Yes - Medication Management Medication Management Adherence: Yes Assessment - Assessment Merits Inpatient Hospitalization: For Immediate Safety, For Stabilization, For Discharge Planning, Pending Safe DC Plan Inpatient DSM-IV Dx: bipolar II d/o, most recent episode manic Clinical Impression: 22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 His roommates phoned police due to paranoid behavior and threats to harm them, the police and himself. Patient merits hospitalization for immediate safety and stabilization. Plan - Plan Treatment Plan: Name: GERRY GABRIEL Birthdate: 1995 [id number] Continue acute intensive psychiatric treatment. Continue titration of depakote and obtain valproic acid level on morning of 08/02/17. Discharge planning to include family and [facility] providers. Continued Medication Management: Different Medication Medications: Current Medications Acetaminophen (Tylenol Tab*) 650 mg PO Q4H PRN PRN Reason: for pain; or Temp >101 F Al Hydrox/Mg Hydrox/Simethicone (Maalox Plus*) 30 ml PO Q4H PRN PRN Reason: INDIGESTION Divalproex Sodium (Depakote Er Tab(*)) 1,000 mg PO BEDTIME DEVIN Last Admin: 07/30/17 20:33 Dose: 1,000 mg Divalproex Sodium (Depakote Er Tab(*)) 250 mg PO BEDTIME DEVIN Hydroxyzine HCl (Atarax Tab*) 25 mg PO Q6H PRN PRN Reason: ANXIETY Last Admin: 07/27/17 00:13 Dose: 25 mg - Discharge Plan Discharge Plan: Outpatient Follow Up Outpatient Program: Counseling/Psych Services at [facility]
--- NOTE | 2017-07-31 11:59 | PN ---
MHU: Group Therapy Note - Service Type Service Type: [id number] Group Psychotherapy - Cognitive Behavioral Group Therapy ( CBT):Patient was attentive and participatory in CBT programming this morning, and remained in good behavioral control. Patient expressed positive insights regarding relevant treatment interventions and goals.
[2017-07-31] MEDS: Divalproex ER TAB(*) 500 MG PO SCH (20:25)
[2017-07-31] MEDS ORDERED: Divalproex ER TAB(*) 250 MG PO SCH (21:00)
[2017-07-31] MEDS: ARIPiprazole TAB* 5 MG PO SCH (22:19)
[2017-08-01] MEDS: Divalproex ER TAB(*) 250 MG PO SCH (20:50)
[2017-08-01] MEDS: Divalproex ER TAB(*) 500 MG PO SCH (20:50)
[2017-08-01] MEDS: ARIPiprazole TAB* 5 MG PO SCH (20:50)
[2017-08-02] MEDS: Divalproex ER TAB(*) 250 MG PO SCH (20:45)
[2017-08-02] MEDS: Divalproex ER TAB(*) 500 MG PO SCH (20:45)
[2017-08-02] MEDS: ARIPiprazole TAB* 5 MG PO SCH (20:45)
--- NOTE | 2017-08-03 13:36 | PN ---
Subjective - Subjective Service Type: 86404 Hosp care 15 min low complexity Subjective: Patient reports improved mood. He states he is anticipating discharge and is eager to return to academic responsibilities. He states he has talked with his roommates who are willing to have him return, with the exception of one who is moving out. Mikel reports he has been sleeping well and has not needed hydroxyzine. He reports concern about increase in hunger and how this may affect body image. He states that diabetes and high cholesterol run in his family and that he will closely monitor due to treatment with abilify. Notified of valproic acid level and decrease in depakote dose. Objective - Appearance Appearance: Well Developed/Nourished Dysmorphic Features: No Hygiene: Normal Grooming: Well Kept - Behavior Psychomotor Activities: Normal Exhibits Abnormal Movement: No - Attitude and Relatedness Attitude and Relatedness: Cooperative Eye Contact: Good - Speech Quality: Unpressured Latencies: Normal Quantity: Appropriate - Mood Patient's Decription of Mood: "Good" - Affect Observed Affect: Good Affect Consistent with: Euthymia - Thought Process Patient's Thought Process: Coherent, Goal Directed Thought Content: No Passive Wish, No Suicidal Planning, No Homicidal Ideation, No Paranoid Ideation - Sensorium Experiencing Hallucinations: No, Sensorium is Clear Type of Hallucinations: Visual: No, Auditory: No, Command: No - Level of Consciousness Orientation: Yes Intact, Yes Orientated to Time, Yes Orientated to Place, Yes Orientated to Person - Impulse Control Impulse Control: Intact - Insight and Judgement Insight and Judgement: Good - Group Participation Particating in Group Activities: Yes - Medication Management Medication Management Adherence: Yes Assessment - Assessment Merits Inpatient Hospitalization: For Immediate Safety, For Stabilization, Pending Safe DC Plan Inpatient DSM-IV Dx: bipolar II d/o, most recent episode manic Clinical Impression: 22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 His roommates phoned police due to paranoid behavior and threats to harm them, the police and himself. Patient merits hospitalization for immediate safety and stabilization. Plan - Plan Treatment Plan: Name: GERRY GABRIEL Birthdate: 1995 [id number] Continue acute intensive psychiatric treatment. valproic acid level of 111.0 on 08/02/17. Will decrease to 1000mg at bedtime. Discharge planning to include family and [facility] providers. Continued Medication Management: Different Medication Medications: Current Medications Acetaminophen (Tylenol Tab*) 650 mg PO Q4H PRN PRN Reason: for pain; or Temp >101 F Al Hydrox/Mg Hydrox/Simethicone (Maalox Plus*) 30 ml PO Q4H PRN PRN Reason: INDIGESTION Aripiprazole (Abilify Tab*) 5 mg PO BEDTIME DEVIN Last Admin: 08/02/17 20:45 Dose: 5 mg Divalproex Sodium (Depakote Er Tab(*)) 1,000 mg PO BEDTIME DEVIN Last Admin: 08/02/17 20:45 Dose: 1,000 mg Hydroxyzine HCl (Atarax Tab*) 25 mg PO Q6H PRN PRN Reason: ANXIETY Last Admin: 07/27/17 00:13 Dose: 25 mg - Discharge Plan Discharge Plan: Outpatient Follow Up Outpatient Program: Counseling/Psych Services at [facility]
[2017-08-03] MEDS: ARIPiprazole TAB* 5 MG PO SCH (20:23)
[2017-08-03] MEDS: Divalproex ER TAB(*) 500 MG PO SCH (21:04)
[2017-08-04 08:17] LABS: HDL Cholesterol 37.4 mg/dL
[2017-08-04] MEDS: ARIPiprazole TAB* 5 MG PO SCH (21:04)
[2017-08-04] MEDS: Divalproex ER TAB(*) 500 MG PO SCH (21:04)
[2017-08-05 07:51] VITALS: BP 127/63
--- NOTE | 2017-08-06 01:52 | DS ---
DISCHARGE SUMMARY: DATE OF ADMISSION: 07/27/17. DATE OF DISCHARGE: 08/05/17. SUPERVISING PSYCHIATRIST: Tomy Patterson MD. DISCHARGE DIAGNOSIS: Bipolar 2 disorder. CONDITION AT TIME OF DISCHARGE: Improved. The patient is euthymic with bright affect. He is calm and in behavioral control. He is able to make his names known. He has been participating fully in unit programming and has identified various reasons that discharge is appropriate and he has also identified plans on changing housing. The patient agrees to continue with current medications as ordered and to follow up with his therapist, Troy Ortiz at [facility], at least weekly and more so if deemed necessary. MENTAL STATUS EXAM: A. The patient is a moderately-framed male who appears stated age. He is pleasant and cooperative. He answers questions fully. He is alert and oriented x3. His eye contact is good. His speech is soft and articulate. His concentration is good. His mood is "motivated". His affect is bright upon approach. Thought process, linear and goal directed. Thought content, denies SI, SIB urges. He denies delusions or preoccupations. There are no concerns of psychosis at this time. His insight is good and his judgment is good. His fund of knowledge is excellent. Instructions were given to the patient by nursing staff. He is discharged on Abilify 5 mg p.o. at bedtime and Depakote ER 1000 mg p.o. at bedtime. The above medications were electronically prescribed to [facility]. The patient is notified that he will receive a 2-week supply and with 1 refill on each of those. B. Diet is regular. Encouraged low cholesterol, low fat diet. C. Activity. Ambulation as tolerated. Tobacco cessation is not applicable. There are no pending labs or diagnostic studies at the time of discharge. FOLLOWUP CARE: The patient will follow up at [facility] as needed for medical care, and he will follow up with [facility]. He has an appointment today at [address] Becca Salinas. He will also see his primary counselor, Troy Ortiz, tomorrow at 9 a.m. He has an appointment with psychiatric nurse practitioner, Jessica Bentley, on August 24 at 9:30 a.m. HOSPITAL COURSE: A. Reason for admission: The patient was brought to the emergency department after his roommates called the police. They found him wrapping a cord around his neck in an attempt to strangle himself. He had also made threats to shoot the police, his roommates, and himself if the police were called. B. Psychiatric treatment rendered. The patient was admitted to adult behavioral services unit on 939 status. His code status was full. He was placed on safety checks every 15 minutes. The patient was encouraged to participate in supportive milieu, individual sessions with staff, and psychoeducational groups. Outpatient medications were resumed initially. This was the second psychiatric hospitalization for Mikel and was last admitted in the beginning of this month for suicidal gestures. He was discharged on Lexapro and followed up with [facility]. Per his roommates, he had a drastic change in personality and behavior and appeared to be having a hypomanic episode, likely secondary to SSRI prescription. The SSRI was discontinued and the patient was started on Depakote as a mood stabilizer. He tolerated this well and the dose was titrated. Valproic acid level was obtained, which was 111. The dose was then decreased to 1000mg at bedtime and level obtained again which was 99.0. The patient was noted to have little insight into his recent behaviors with his roommates at home. He also was noted to have some parasomnia behavior including standing next to his hospital roommate while he slept. The patient was not cognizant of these events. He was moved to a single room for his safety and that of other patients. The patient was started on aripiprazole to better target depression, anxiety, along with benefit of antipsychotic features. The patient tolerated this well. We discussed risks versus benefits of these medications including weight gain, hyperlipidemia, and elevated glucose. Blood work was obtained and the patient was given printed copy of his results, as he stated that high cholesterol runs in his family. The patient was encouraged to discuss returning to his housing with his roommates and [employer] manager book, Charisse Cast served as a liaison. It was determined that the roommates were not entirely comfortable with Mikel returning to the situation and preferred to keep their relationship as friends instead of housemates. On August 04, underwriter, social media executive, Ann Seay, patient called his parents for a family meeting to discuss discharge planning. At that time, it was unclear how the roommates were feeling about Mikel returning to the apartment. [facility] manager book, Charisse, had notified Mikel of his roommates apprehensions, but it appeared that Mikel was not able to hear that or did not understand this information. Efforts were made to coordinate conference call with the manager book, Mikel, treatment team here , and his parents, this was done this morning at 11:30. The previous evening, Mikel identified various housing options temporarily and also ideas for his own housing and his parents are supportive of this plan. Mikel will utilize a [employer] company to pack and move his belongings and place them into storage. Mikel will stay temporarily with some friends near campus or in his fraternity until he identifies his own single apartment off campus likely in the next week or two. The patient is also planning to drop one of his classes to decrease his academic load and all are in agreement and supportive of this plan as well. The patient is knowledgeable about mental health and social resources including [facility] alliance through [employer]. The patient was safe on all checks. He denied suicidal ideations or risk to himself or others. He expressed concern for increased decompensation if the admission to the mental health unit continues. He states that he wants to return to [employer] and pursue the program that he is in. He states that he also spoke with his faculty advisor on phone who is supportive of his return to the program. All of the above was very validating to Mikel. Due to an obligation to treat in the least restrictive settings, this underwriter, social media executive, Mikel's parents and the [employer] manager book were all in agreement to discharge Mikel today. He was given written instructions by nursing staff and discharged via taxi back to campus. TARIQ MILLER, ALYSIA [id number]/CPS #: [id number] JAY JAY
== END 2017-08-05 13:00 | disposition home or self-care (01) | DRG 753 ==
LOC: ED 17:08 → BSU 07-27 17:07
PROVIDERS: ADMIT Psychiatry & Neurology Psychiatry; ATTEND Psychiatry & Neurology Psychiatry
DX: F31.81 Bipolar II disorder (principal); Z79.899 Other long term (current) drug therapy
CPT/HCPCS: 36415; 80053; 80061; 80164; 80307; 80320; 80329; 81003; 83036; 84443; 85025; 90853; 99222; 99231; 99232; 99238; A9270-GY; G0480